=== PATIENT | female | born 1975 | race Caucasian/White ===

== ENCOUNTER 2018-12-03 17:52 | Observation (INO) | payer MEDICAID ==
[~2018-12-03] VITALS: Ht 170.2 cm; Wt 58.1 kg
[2018-12-03 17:54] VITALS: BP 124/89
--- NOTE | 2018-12-03 18:02 | NUR ---
PT TO WAIT IN ER LOBBY. VSS. [id number]. URINE SAMPLE COLLECTED
[2018-12-03 19:47] LABS: BASOPHILS % (AUTO) 0.7 % (0.0-2.0); EOSINOPHILS # (AUTO) 0.2 K/uL (0-0.4); EOSINOPHILS % (AUTO) 4.4 % (0.0-4.0); HEMATOCRIT 29.5 % (36-48); HEMOGLOBIN 9.3 g/dL (12.0-16.0); LYMPHOCYTES # (AUTO) 1.1 K/uL (2.5-16.5); LYMPHOCYTES % (AUTO) 25.8 % (20.5-51.1); MEAN CORPUSCULAR HEMOGLOBIN 23 pg (27-31); MEAN CORPUSCULAR HGB CONC 32 g/dL (33-37); MEAN CORPUSCULAR VOLUME 72.3 fL (80-94); MONOCYTES # (AUTO) 0.5 K/uL (0.8-1.0); NEUTROPHILS # (AUTO) 2.4 K/uL (1.8-7.7); NEUTROPHILS % (AUTO) 58.1 % (42.2-75.2); PLATELET COUNT (AUTO) 301 K/uL (140-450); RED BLOOD CELL COUNT(AUTO) 4.08 MIL/uL (4.20-5.40); RED CELL DISTRIBUTION WIDTH 22.2 % (11.6-13.7); WHITE BLOOD COUNT (AUTO) 4.2 K/uL (4.8-10.8)
--- NOTE | 2018-12-03 20:13 | NUR ---
PT AMBULATED TO BED 4.
--- NOTE | 2018-12-03 20:29 | NUR ---
PT BIB BY FAMILY WITH C/O VAGINAL BLEEDING, CRAMPING PAIN, HEADACHE, NAUSEA X 1 MONTH. PT HAD BLOOD TRANSFUSION X2 , WAS SEEN AT [facility] AND RECIEVED BLOOD TRANSFUSION YESTERDAY.PER PT, SHE IS TO SEE DR SANCHEZ REGARDING SYMPTOMS. PAIN 09/20, STATES IS TOLERABLE AT THIS TIME. PT SEEN BY ER . LAB DRAWN. WILL CONTINUE TO MONITOR. PMH- 2011, ANEMIA RX- PROVERA
[2018-12-03 20:36] LABS: POTASSIUM 3.9 mmol/L (3.5-5.1)
[2018-12-03 20:37] LABS: ALBUMIN 3.9 g/dL (3.4-5.0); ANION GAP 11.2 (8-16); CARBON DIOXIDE 27.7 mmol/L (21-32); CREATININE 0.8 mg/dL (0.6-1.3); TOTAL BILIRUBIN 0.4 mg/dL (0.0-1.0)
[2018-12-03] MEDS ORDERED: ESTROGENS CONJUGATED 25 MG INJ VIAL IVP ONE (21:35)
[2018-12-03] MEDS ORDERED: LACTATED RINGERS 1,000 ML IV ONE (21:35)
--- NOTE | 2018-12-03 22:45 | NUR ---
MEDICATIONS ADMINISTERED ORDERED. RISKS/BENEFITS REVIEWED. WILL CONTINUE TO MONITOR.
--- NOTE | 2018-12-03 23:00 | NUR ---
Patient will be admitted to [facility]. Admited to Med/Surg. Will go to room. Belongings list completed. Report to .
[2018-12-03 23:10] VITALS: BP 117/66
--- NOTE | 2018-12-03 23:10 | NUR ---
RECEIVED BEDSIDE REPORT FROM ER NURSE. PATIENT IS AWAKE, ALERT, AND COOPERATIVE. ADMITTING DIAGNOSIS DYSFUNCTIONAL UTERINE BLEEDING AND ANEMIA. CHIEF COMPLAINT VAGINAL BLEEDING X 1 MONTH. RESPIRATION EVEN UNLABORED ON ROOM AIR. NO DISTRESS NOTED. SKIN IS WARM AND DRY. IV PATENT AND INTACT. DENIES PAIN. HEART RATE REGULAR AND S1 & S2 NOTED. LUNGS SOUNDS CLEAR ON AUSCULTATION. ABDOMEN SOFT AND NON-TENDER. BOWEL SOUNDS PRESENT IN ALL 4 QUADRANTS. LAST BOWEL MOVEMENT 12/03/18. MRSA SCREEN DONE. VITALS WERE TAKEN. ORIENT PATIENT TO ROOM, STAFF, AND CALL LIGHT. PLAN OF CARE WAS DISCUSSED. ALL SAFETY MEASURES IN PLACE. BED IS AT LOW POSITION. CALL LIGHT WITHIN REACH AND VERBALIZES ITS USE. WILL CONTINUE TO MONITOR.
--- NOTE | 2018-12-03 23:30 | NUR ---
ASKED PATIENT TO DESCRIBED HER VAGINAL BLEEDING. PATIENT STATED SHE BLEEDS HEAVILY THAT SHE NEEDS TO CHANGE HER TAMPON EVERY HOUR. WILL CONTINUE TO MONITOR.
--- NOTE | 2018-12-04 | NUR ---
CHECKED PATIENT. PATIENT SLEEPING RESPIRATION EVEN UNLABORED ON ROOM AIR. NO DISTRESS NOTED. CALL LIGHT WITHIN REACH. WILL CONTINUE TO MONITOR.
--- NOTE | 2018-12-04 02:00 | NUR ---
CHECKED PATIENT. PATIENT SLEEPING RESPIRATION EVEN UNLABORED ON ROOM AIR. NO DISTRESS NOTED. CALL LIGHT WITHIN REACH. WILL CONTINUE TO MONITOR.
[2018-12-04] MEDS: ONDANSETRON 4 MG/2 ML VIAL IVP PRN ×3 (04:24→13:19)
--- NOTE | 2018-12-04 04:25 | NUR ---
GAVE ZOFRAN FOR PATIENT'S NAUSEA PER DOCTOR'S PRN ORDER. PATIENT TOLERATED MEDICATION WELL. WILL CONTINUE TO MONITOR
--- NOTE | 2018-12-04 07:16 | NUR ---
ENDORSED PATIENT TO DAY SHIFT NURSE. PATIENT IN STABLE CONDITION.
--- NOTE | 2018-12-04 07:20 | NUR ---
RECEIVED HAND OFF REPORT FROM PEDIATRIC INTENSIVE PHYSICIAN NURSE. PT IS AWAKE IN BED PT APPEARS STABLE AND IN NO APPARENT DISTRESS. IVF INFUSING IV SITE PATENT AND SHOWS NO SIGNS INFLITRATION OR INFLAMMATION. WILL CONTINUE TO MONITOR.
[2018-12-04 07:43] LABS: BASOPHILS % (AUTO) 0.3 % (0.0-2.0); EOSINOPHILS # (AUTO) 0.1 K/uL (0-0.4); EOSINOPHILS % (AUTO) 3.7 % (0.0-4.0); HEMATOCRIT 26.2 % (36-48); HEMOGLOBIN 8.4 g/dL (12.0-16.0); LYMPHOCYTES # (AUTO) 0.7 K/uL (2.5-16.5); LYMPHOCYTES % (AUTO) 17.4 % (20.5-51.1); MEAN CORPUSCULAR HEMOGLOBIN 23 pg (27-31); MEAN CORPUSCULAR HGB CONC 32 g/dL (33-37); MONOCYTES # (AUTO) 0.4 K/uL (0.8-1.0); NEUTROPHILS # (AUTO) 2.7 K/uL (1.8-7.7); NEUTROPHILS % (AUTO) 67.6 % (42.2-75.2); PLATELET COUNT (AUTO) 253 K/uL (140-450); RED BLOOD CELL COUNT(AUTO) 3.64 MIL/uL (4.20-5.40); RED CELL DISTRIBUTION WIDTH 21.6 % (11.6-13.7)
--- NOTE | 2018-12-04 08:00 | NUR ---
PT COMPLAINS OF HEADACHE AND NAUSEA ADMINISTERED ZOFRAN FOR NAUSEA. WILL CONTACT DR. SANCHEZ TO ASK ABOUT PAIN MEDICATIONS.
[2018-12-04 08:15] VITALS: BP 96/58
--- NOTE | 2018-12-04 08:15 | NUR ---
SPOKE WITH DR. SANCHEZ ABOUT PATIENT HEADACHE. RECEIVED ORDERS. INFORMED DR. SANCHEZ OF PATIENT HGB AND HCT WELL. HE STATED ITS OK AND WE WILL STILL CONTINUE WITH THE PROCEDURE AT 1136
[2018-12-04] MEDS ORDERED: IBUPROFEN 800 MG TAB PO PRN (08:20)
[2018-12-04] MEDS ORDERED: IBUPROFEN 600 MG TAB PO PRN ×2 (08:25→15:50)
--- NOTE | 2018-12-04 11:30 | NUR ---
PT SPEAKING WITH DR. SANCHEZ ABOUT PROCEDURE. OBTAINED CONSENT FROM BOTH PATIENT AND DR. SANCHEZ PLACED IN CHART
[2018-12-04] MEDS ORDERED: ONDANSETRON 4 MG/2 ML VIAL ONE ×2 (11:51→13:35)
[2018-12-04] MEDS ORDERED: KETOROLAC 30 MG/ML VIAL ONE (11:51)
[2018-12-04] MEDS ORDERED: SEVOFLURANE 250 ML BTL INH ONE (11:51)
[2018-12-04] MEDS ORDERED: DEXAMETHASONE 4 MG/ML VIAL ONE (11:51)
[2018-12-04] MEDS ORDERED: PROPOFOL 200 MG/20 ML VIAL IV ONE (11:51)
--- NOTE | 2018-12-04 11:52 | NUR ---
PT TAKEN OFF UNIT FOR PROCEDURE IN OR
[2018-12-04] MEDS ORDERED: fentaNYL 0.05 MG/ML VIAL ONE (12:02)
--- NOTE | 2018-12-04 14:00 | NUR ---
PT ARRIVED BACK ON THE UNIT FROM PROCEDURE FAMILY IS AT BEDSIDE WILL CONTINUE TO MONITOR VITALS
--- NOTE | 2018-12-04 14:20 | NUR ---
PATIENT HAS BEEN SCREENED AND CATEGORIZED MODERATE NUTRITION RISK. PATIENT WILL BE SEEN WITHIN 3-5 DAYS OF ADMISSION. 12/06/18 - 12/08/18 SELVIN ÁLVAREZ MBA, RD
--- NOTE | 2018-12-04 14:30 | NUR ---
DR. SANCHEZ AT BEDSIDE PLACED ORDER FOR CONSULT WITH DR. TOBIAS UNDER THE RESIDENTS.
--- NOTE | 2018-12-04 15:25 | NUR ---
PT IN BED PT APPEARS STABLE AND IN NO APPARENT DISTRESS. FAMILY IS AT BEDSIDE WILL CONTINUE TO MONITOR
[2018-12-04] MEDS ORDERED: PROMETHAZINE 25 MG/ML VIAL IM PRN (15:50)
[2018-12-04] MEDS ORDERED: diphenhydrAMINE 50 MG/ML VIAL IVP PRN (15:50)
[2018-12-04] MEDS ORDERED: ACETAMINOPHEN 325 MG TAB PO PRN (15:50)
[2018-12-04] MEDS ORDERED: ONDANSETRON 4 MG/2 ML VIAL IVP PRN (15:50)
[2018-12-04] MEDS ORDERED: FERR-252 PO (16:02)
[2018-12-04] MEDS ORDERED: NACL 0.9% 1,000 ML IV SCH (16:20)
[2018-12-04 16:35] VITALS: BP 108/66
--- NOTE | 2018-12-04 17:39 | NUR ---
FREQUENT ROUNDING ON PT PT APPEARS STABLE AND IN NO APPARENT DISTRESS. ALL SAFETY MEASURES ARE IN PLACE WILL CONTINUE TO MONITOR.
--- NOTE | 2018-12-04 19:17 | NUR ---
ENDORSED PT TO PM RN PT STABLE
--- NOTE | 2018-12-04 19:18 | NUR ---
Received endorsement from AM shift RN; patient A/Ox4, able to make needs known, Mal[place]ian speaking, ambulatory. PAtient tlkaing with family member; introduced self, updated board. No SOB or distress noted, on room air. IV site noted on left antecubital, 22 gauge, running IVF at 50mL/hr. Bed in the lowest position, call light within reach. Initial assessment done. Will continue to monitor.
[2018-12-04] MEDS: DOCUSATE SODIUM 100 MG GELCAP PO SCH (20:01)
--- NOTE | 2018-12-04 20:55 | NUR ---
Due meds given, tolerated well.
--- NOTE | 2018-12-04 23:30 | NUR ---
Vitals taken, no distress noted.
[2018-12-05] VITALS: BP 94/48
--- NOTE | 2018-12-05 02:00 | NUR ---
Rounds done; patient asleep, visible chest rise and fall noted.
--- NOTE | 2018-12-05 04:20 | NUR ---
Checks made; no distress noted.
--- NOTE | 2018-12-05 06:20 | NUR ---
Due meds given, vitals taken. Will endorse to AM shift RN for continuity of care.
--- NOTE | 2018-12-05 07:29 | NUR ---
RECEIVED HAND OFF REPORT FROM BUTCHER HEAD NURSE PT AWAKE IN BED PT APPEARS STABLE AND IN NO APPARENT DISTRESS. ALL SAFETY MEASURES ARE IN PLACE WILL CONTINUE TO MONITOR.
[2018-12-05 08:00] VITALS: BP 97/53
[2018-12-05 08:04] LABS: BASOPHILS % (AUTO) 0.1 % (0.0-2.0); EOSINOPHILS % (AUTO) 0.2 % (0.0-4.0); HEMATOCRIT 24.5 % (36-48); HEMOGLOBIN 7.8 g/dL (12.0-16.0); LYMPHOCYTES # (AUTO) 0.9 K/uL (2.5-16.5); LYMPHOCYTES % (AUTO) 10.1 % (20.5-51.1); MEAN CORPUSCULAR HEMOGLOBIN 23 pg (27-31); MEAN CORPUSCULAR HGB CONC 32 g/dL (33-37); MEAN CORPUSCULAR VOLUME 72.8 fL (80-94); MONOCYTES # (AUTO) 0.5 K/uL (0.8-1.0); MONOCYTES % (AUTO) 5.8 % (1.7-9.3); NEUTROPHILS # (AUTO) 7.1 K/uL (1.8-7.7); NEUTROPHILS % (AUTO) 83.8 % (42.2-75.2); PLATELET COUNT (AUTO) 246 K/uL (140-450); RED BLOOD CELL COUNT(AUTO) 3.36 MIL/uL (4.20-5.40); RED CELL DISTRIBUTION WIDTH 21.6 % (11.6-13.7); WHITE BLOOD COUNT (AUTO) 8.5 K/uL (4.8-10.8)
[2018-12-05 08:30] LABS: ANION GAP 12.6 (8-16); CARBON DIOXIDE 25.1 mmol/L (21-32); CREATININE 0.7 mg/dL (0.6-1.3); POTASSIUM 3.7 mmol/L (3.5-5.1)
[2018-12-05 08:48] LABS: CHOL/HDL RATIO 2.5 (1-4.5); MAGNESIUM 1.8 mg/dL (1.8-2.4); PHOSPHORUS 2.8 mg/dL (2.5-4.9); THYROID STIMULATING HORMONE 0.71 uIU/mL (0.34-3.74)
[2018-12-05] MEDS ORDERED: FAMOTIDINE 20 MG TAB PO SCH (09:00)
[2018-12-05] MEDS: DOCUSATE SODIUM 100 MG GELCAP PO SCH (09:06)
--- NOTE | 2018-12-05 09:25 | NUR ---
FREQUENT ROUNDING ON PT PT APPEARS STABLE AND IN NO APPARENT DISTRESS ALL SAFETY MEASURES ARE IN PLACE WILL CONTINUE TO MONITOR.
[2018-12-05 10:56] VITALS: BP 97/53
--- NOTE | 2018-12-05 11:25 | NUR ---
REVIEWED DISCHARGE PAPERWORK WITH PATIENT INFORMED PT TO FOLLOW UP WITH DR. SANCHEZ AT HIS OFFICE IN 1-2 WEEKS. REVIEWED MEDICATIONS AND WHERE THE PATIENT CAN DEBURR TECHNICIAN HER PRESCRIPTIONS. REMOVED IV IV TIP INTACT. REMOVED ID BAND/ PT APPEARS STABLE AND IN NO APPARENT DISTRESS. PT AMBULATED OFF THE UNIT WITH MOTHER PT HAD ALL PERSONAL BELONGINGS
== END 2018-12-05 11:25 | disposition home or self-care (01) ==
LOC: MED 17:52 → MTU 21:42
PROVIDERS: ADMIT Obstetrics & Gynecology; ATTEND Obstetrics & Gynecology
DX: N92.0 Excessive and frequent menstruation with regular cycle (principal); D64.9 Anemia, unspecified; R11.2 Nausea with vomiting, unspecified; N84.0 Polyp of corpus uteri; R93.89 Abnormal findings on diagnostic imaging of other specified body structures
CPT/HCPCS: 36415; 58558; 71045; 76830; 80048; 80053; 80061; 83735; 84100; 84443; 84702; 85018; 85025; 86886; 86900; 86901; 87081; 88305; 96361; 96374; 96375; 96376; 99285; G0378; J1100; J1410; J1885; J2405; J2704; J3010; Q0092; J7120

== ENCOUNTER 2019-05-27 19:58 | Emergency (ER) | payer MEDICAID ==
[~2019-05-27] VITALS: Ht 167.6 cm; Wt 59.0 kg
[~2019-05-27 19:58] MED LIST: FERR-252 PO
[2019-05-27 20:10] VITALS: BP 139/91
--- NOTE | 2019-05-28 00:27 | NUR ---
PT ASSESSMENT COMPLETE. PT LAYNG SUPINE IN BED. BEDRAIL X1 UP. WILL CONTINUE TO MONITOR.
[2019-05-28] MEDS ORDERED: NACL 0.9% 1,000 ML IV ONE (00:50)
--- NOTE | 2019-05-28 00:50 | NUR ---
PT RESTING IN BED EYES OPEN. AAO X4. PT DENIES ABD PAIN. PT DENIES DIZZYNESS. PT ORAL MUCOSA IS PINK. SKIN IS WARM AND DRY TO TOUCH. PT SKIN TURGOR ELASTIC. VSS.
[2019-05-28 01:28] LABS: BASOPHILS # (AUTO) 0.1 K/uL (0.00-0.22); BASOPHILS % (AUTO) 1.4 % (0.0-2.0); EOSINOPHILS # (AUTO) 0.4 K/uL (0-0.4); EOSINOPHILS % (AUTO) 6.9 % (0.0-4.0); HEMOGLOBIN 8.6 g/dL (12.0-16.0); LYMPHOCYTES # (AUTO) 1.6 K/uL (2.5-16.5); LYMPHOCYTES % (AUTO) 27.4 % (20.5-51.1); MEAN CORPUSCULAR HEMOGLOBIN 21 pg (27-31); MEAN CORPUSCULAR HGB CONC 31 g/dL (33-37); MEAN CORPUSCULAR VOLUME 69.7 fL (80-94); MONOCYTES # (AUTO) 0.5 K/uL (0.8-1.0); MONOCYTES % (AUTO) 8.9 % (1.7-9.3); NEUTROPHILS # (AUTO) 3.3 K/uL (1.8-7.7); NEUTROPHILS % (AUTO) 55.4 % (42.2-75.2); PLATELET COUNT (AUTO) 298 K/uL (140-450); RED BLOOD CELL COUNT(AUTO) 4.02 MIL/uL (4.20-5.40); WHITE BLOOD COUNT (AUTO) 5.9 K/uL (4.8-10.8)
--- NOTE | 2019-05-28 01:30 | NUR ---
IV PLACED IN L AC 20 G. PT IV SITE IS PATENT. NO PAIN OR SWELLING NOTED. IVF NS 0.9% RUNNING CONTINOUSLY. FRIEND AT BEDSIDE.
--- NOTE | 2019-05-28 01:30 | NUR ---
PT AMBULATED WITH STEADY GAIT TO BATHROOM. UA COLLECTED.
[2019-05-28 01:48] LABS: PROTHROMBIN TIME 9.3 secs (10.8-13.4)
[2019-05-28 01:57] LABS: FREE T4 (FREE THYROXINE) 1.06 ng/dL (0.76-1.46); MAGNESIUM 1.9 mg/dL (1.8-2.4); THYROID STIMULATING HORMONE 2.69 uIU/mL (0.34-3.74)
[2019-05-28 02:15] LABS: APPEARANCE,URINE CLEAR (CLEAR); BILIRUBIN,URINE NEGATIVE (NEGATIVE); BLOOD, URINE NEGATIVE (NEGATIVE); COLOR,URINE YELLOW (YELLOW); LEUKOCYTE ESTERASE ,URINE TRACE (NEGATIVE); NITRITE, URINE NEGATIVE (NEGATIVE); UGLUCOSE NEGATIVE (NEGATIVE)
[2019-05-28 02:24] LABS: RBC,URINE 0-5 /HPF (0-5)
--- NOTE | 2019-05-28 02:45 | NUR ---
IV FLUIDS FINISHED. PT DENIES PAIN AT IV SITE. NO REDNESS OR SWELLING NOTED AT IV SITE.
--- NOTE | 2019-05-28 03:36 | NUR ---
PT RESTING IN BED EYES OPEN. RESPIRATIONS ARE EVEN AND UNLABORED. SKIN IS WARM AND DRY TO TOUCH. PT FRIEND AT BEDSIDE. 0/10 PAIN. VSS.
[2019-05-28 04:05] VITALS: BP 112/78
--- NOTE | 2019-05-28 04:05 | NUR ---
Patient discharged with v/s stable. Written and verbal after care instructions given and explained. Patient verbalized understanding. Ambulatory with steady gait. All questions addressed prior to discharge. Advised to follow up with PMD.
== END 2019-05-28 04:05 | disposition home or self-care (01) ==
LOC: MED 19:58
DX: N39.0 Urinary tract infection, site not specified (principal); R53.1 Weakness; D64.9 Anemia, unspecified; R53.83 Other fatigue; Z98.890 Other specified postprocedural states; Z79.899 Other long term (current) drug therapy; Z88.1 Allergy status to other antibiotic agents
CPT/HCPCS: 36415; 81001; 81025; 83735; 84439; 84443; 85025; 85610; 85730; 86886; 86900; 86901; 87086; 87186; 96360; 99283; J7030